=== PATIENT | male | born 1985 | race Caucasian/White ===

== ENCOUNTER 2017-01-26 18:13 | Inpatient (IN) | payer MEDICAID ==
[~2017-01-26] VITALS: Ht 182.9 cm; Wt 110.0 kg
[2017-01-26] MEDS ORDERED: NITROGLYCERIN 2% 1 GM OINT PKT TD STA (21:27)
[2017-01-26] MEDS ORDERED: ASPIRIN 81 MG TAB PO STA (21:27)
--- NOTE | 2017-01-26 21:34 | ERA ---
ER Documentation Chief Complaint Date/Time DATE: 01/26/17 TIME: 21:31 Chief Complaint HIGH BLOOD PRESSURE AND FEELING TIRED X 2 DAYS,DENIES PAIN HPI Patient is a 31-year-old male who presents to the ER with gradual onset, constant, progressive bilateral leg swelling and dyspnea for the last week. He went to a clinic and was found to have very elevated blood pressure and was sent to the ER. He denies chest pain. He reports having significant diaphoresis. He denies drug use. Reports history of diabetes, heart failure, hypertension, but states that he stopped taking his medications 2 months ago.He denies back pain. ROS All systems reviewed and are negative except as per history of present illness. Medications Home Meds No Active Prescriptions or Reported Meds Allergies Allergies: Coded Allergies: No Known Allergy (Unverified , 01/26/17) PMhx/Soc Past medical history: Diabetes mellitus, hypertension, CHF Past surgical history: Denies Social history: Denies tobacco, alcohol or illicit drugs FmHx Family History: diabetes, No coronary disease Physical Exam Vitals Vital Signs Date Time Temp Pulse Resp B/P Pulse Ox O2 Delivery O2 Flow Rate FiO2 01/26/17 23:36 106 22 154/84 97 Room Air 01/26/17 22:04 97.9 106 15 178/135 99 Nasal Cannula 2.0 01/26/17 21:39 Nasal Cannula 2 01/26/17 20:00 76 18 200/101 98 01/26/17 18:18 98.8 114 18 199/144 98 Physical Exam Const: Alert, mildly distressed, severely diaphoretic Head: Atraumatic Eyes: Normal Conjunctiva, No pallor, no icterus ENT: Normal External Ears, Nose and Mouth. Mucous membranes moist Neck: Full range of motion..~ No meningismus. Positive JVD. Resp: Clear to auscultation bilaterally, Trace bibasilar rales, No wheezes Cardio: Tachycardia, regular rhythm, no murmurs, Positive S4 gallop Abd: Soft, non tender, non distended. Skin: No petechiae or rashes Back: No midline or flank tenderness Ext: No cyanosis, 1+ edema bilateral legs to the knees Neur: Awake and alert, Cranial nerves II through XII intact bilaterally, strength and sensation full in 4 extremities. Psych: Normal Mood and Affect Result Diagram: 9213301/26/172133 Results 24 hrs Laboratory Tests Test 01/26/17 21:34 White Blood Count 12.110^3/ul Red Blood Count 4.9810^6/ul Hemoglobin 15.1g/dl Hematocrit 46.0% Mean Corpuscular Volume 92.4fl Mean Corpuscular Hemoglobin 30.3pg Mean Corpuscular Hemoglobin Concent 32.8g/dl Red Cell Distribution Width 13.6% Platelet Count 18522^3/UL Mean Platelet Volume 11.1fl Neutrophils % 55.1% Lymphocytes % 30.5% Monocytes % 8.5% Eosinophils % 4.6% Basophils % 0.7% Nucleated Red Blood Cells % 0.0/100WBC Neutrophils # (Manual) 6.610^3/ul Lymphocytes # 3.710^3/ul Monocytes # 1.010^3/ul Eosinophils # 0.610^3/ul Basophils # 0.110^3/ul Nucleated Red Blood Cells # 0.010^3/ul Urine Color YELLOW Urine Clarity CLEAR Urine pH 6.0 Urine Specific [place] 1.017 Urine Ketones NEGATIVEmg/dL Urine Nitrite NEGATIVEmg/dL Urine Bilirubin NEGATIVEmg/dL Urine Urobilinogen 1+mg/dL Urine Leukocyte Esterase NEGATIVELeu/ul Urine Microscopic RBC 1/HPF Urine Microscopic WBC 3/HPF Urine Bacteria FEW/HPF Urine Hemoglobin NEGATIVEmg/dL Urine Glucose NEGATIVEmg/dL Urine Total Protein 3+mg/dl Sodium Level 140mmol/L Potassium Level 4.0mmol/L Chloride Level 104mmol/L Carbon Dioxide Level 26mmol/L Anion Gap 14 Blood Urea Nitrogen 29mg/dl Creatinine 1.50mg/dl Glucose Level 136mg/dl Lactic Acid Level 1.9mmol/L Calcium Level 9.1mg/dl Total Bilirubin 0.4mg/dl Direct Bilirubin 0.00mg/dl Indirect Bilirubin 0.4mg/dl Aspartate Amino Transf (AST/SGOT) 39IU/L Alanine Aminotransferase (ALT/SGPT) 48IU/L Alkaline Phosphatase 88IU/L Troponin I 0.128ng/ml B-Type Natriuretic Peptide 8690PG/ML Total Protein 6.4g/dl Albumin 3.7g/dl Globulin 2.70g/dl Albumin/Globulin Ratio 1.37 Urine Opiates Screen Negative Urine Barbiturates Negative Urine Amphetamines Screen POSITIVE Urine Benzodiazepines Screen Negative Urine Cocaine Screen Negative Urine Cannabinoids Negative Current Medications Medications (Trade) Dose Ordered Sig/Belen Route PRN Reason Start Time Stop Time Status Last Admin Dose Admin Nitroglycerin (Nitroglycerin 2% Oint) 1 inch ONCE STAT TD 01/26/17 21:27 01/26/17 21:31 DC 01/26/17 21:58 Aspirin 162 mg 162 mg ONCE STAT PO 01/26/17 21:27 01/26/17 21:31 DC 01/26/17 21:57 Nicardipine HCl (Cardene Iv) 200 ml @ 50 mls/hr TITRATE IV 01/26/17 21:30 01/26/17 21:58 Furosemide (Lasix) 40 mg ONCE ONCE IV 01/26/17 23:30 01/26/17 23:31 DC 01/26/17 23:21 Procedures/MDM EKG read by me: Time 2136, rate 104 Rhythm: Sinus tachycardia [place]: Normal Intervals: Normal ST-T waves: T-wave inversion in lateral leads Ectopy: No Q-waves: No Impression: Sinus tachycardia with lateral T-wave inversion does not appear ischemic MDM: Patient is a 31-year-old male who presents to the ER with 1 week of progressive dyspnea and leg swelling. He has severely elevated blood pressure with diastolic of 140. He is diaphoretic. He complains of active shortness of breath. He has history of CHF, hypertension, and diabetes and is noncompliant with his medication. Due to concern for hypertensive emergency, the patient was started on a nicardipine drip. He was also given transdermal nitroglycerin and aspirin for cardiac protection. He was found to have a slightly elevated troponin, a significantly elevated BNP, and mild renal insufficiency with creatinine of 1.5. He was given a dose of Lasix. His tox screen was positive for amphetamines. I will check a creatinine kinase, and will admit him to the ICU for blood pressure control and management of CHF. I believe that his symptoms may be due to acute elevation in blood pressure and constant today hypertensive emergency. Critical Care Time: 32 minutes Treatments/Evaluations: Close monitoring and treatment of unstable vital signs, cardiorespiratory, and neurologic status, while maintaining tight balance of fluid, respiratory, and cardiac interventions. This time includes discussing the case with the patient and the patient's family. This time does not include all procedures stated elsewhere in this record. This time also includes reviewing old records, labs and radiological studies. This time includes examining and re-examining the patient. Additionally, this time also includes arranging care with admitting and consulting physicians. Departure Diagnosis: Primary Impression: Hypertensive crisis Additional Impressions: Congestive heart failure Qualified Code: I50.9 - Acute congestive heart failure, unspecified congestive heart failure type Renal insufficiency Condition: SANDRA Crystal MD Jan 26, 2017 21:34
[2017-01-26 21:48] LABS: BASOPHIL # 0.1 10^3/ul (0.0-0.1); BASOPHILS % 0.7 % (0.0-2.0); EOSINOPHILS # 0.6 10^3/ul (0.0-0.5); EOSINOPHILS % 4.6 % (0.0-7.0); HEMOGLOBIN 15.1 g/dl (14.0-18.0); LYMPHOCYTES # 3.7 10^3/ul (0.8-2.9); LYMPHOCYTES % 30.5 % (15.0-51.0); MEAN CORPUSCULAR HEMOGLOBIN 30.3 pg (29.0-33.0); MEAN CORPUSCULAR HGB CONC 32.8 g/dl (32.0-37.0); MEAN CORPUSCULAR VOLUME 92.4 fl (82.0-101.0); MEAN PLATELET VOLUME 11.1 fl (7.4-10.4); MONOCYTES % 8.5 % (0.0-11.0); NEUTROPHILS % 55.1 % (39.0-77.0); PLATELET COUNT 275 10^3/UL (140-415); RED BLOOD COUNT 4.98 10^6/ul (4.70-6.10); RED CELL DISTRIBUTION WIDTH 13.6 % (11.5-14.5); WHITE BLOOD COUNT 12.1 10^3/ul (4.8-10.8)
[2017-01-26 21:51] LABS: ADD UMIC YES; UR ASCORBIC ACID NEGATIVE (NEGATIVE); UR BACTERIA FEW /HPF (NONE SEEN); UR BILIRUBIN (Dip) NEGATIVE (NEGATIVE); UR BLOOD (Dip) NEGATIVE (NEGATIVE); UR CLARITY CLEAR (CLEAR); UR COLOR YELLOW (YELLOW); UR GLUCOSE (Dip) NEGATIVE (NEGATIVE); UR KETONES (Dip) NEGATIVE (NEGATIVE); UR LEUKOCYTE ESTERASE (Dip) NEGATIVE Leu/ul (NEGATIVE); UR NITRITE (Dip) NEGATIVE (NEGATIVE); UR RBC 1 /HPF (0-5); UR SPECIFIC GRAVITY (Dip) 1.017 (1.003-1.030); UR TOTAL PROTEIN (Dip) 3+ mg/dl (NEGATIVE); UR UROBILINOGEN (Dip) 1+ mg/dL (NEGATIVE)
[2017-01-26] MEDS: niCARdipine-NS 0.1MG/ML DRIP 200 ML IV SCH (21:58)
[2017-01-26 22:12] LABS: BARBITURATES Negative (NEGATIVE); BENZODIAZEPINES Negative (NEGATIVE); CANNABINOIDS Negative (NEGATIVE); COCAINE Negative (NEGATIVE); OPIATES Negative (NEGATIVE)
--- NOTE | 2017-01-26 22:23 | RADRPT ---
PROCEDURE: XR Chest AP portable CLINICAL INDICATION: Short of breath TECHNIQUE: An AP portable radiograph of the chest was submitted. COMPARISON: None. FINDINGS: Support Hardware: None Cardiovascular: The heart is mild to moderately enlarged but the pulmonary vasculature appears unrem arkable. Lung Olivera: The lung olivera appear clear with no nodule, alveolar infiltrate, or interstitial promi nence evident. Pleural Spaces: No pneumothorax or pleural effusion is identified. Osseous Structures: The osseous structures appear intact. Soft Tissues: The soft tissues appear generous. IMPRESSION: 1. Mild to moderate cardiomegaly without CHF. 2. Otherwise, unremarkable portable chest. Physician Aubrey Date Time Electronically viewed and signed by Physician Aubrey on 01/26/2017 22:23 /
[2017-01-26 22:35] LABS: ALBUMIN 3.7 g/dl (3.3-4.9); ALBUMIN/GLOBULIN RATIO 1.37; BILIRUBIN,INDIRECT 0.4 mg/dl (0-1.1); BILIRUBIN,TOTAL 0.4 mg/dl (0.2-1.3); CALCIUM 9.1 mg/dl (8.4-10.2); CREATININE 1.5 mg/dl (0.61-1.24); TOTAL PROTEIN 6.4 g/dl (6.1-8.1)
[2017-01-26 22:47] LABS: TROPONIN-I 0.128 ng/ml (0.00-0.12)
[2017-01-26] MEDS ORDERED: FUROSEMIDE 40 MG INJ IV ONE (23:30)
[2017-01-27] MEDS ORDERED: HEPARIN 1000 UNITS/ML 10 ML INJ IV ONE (01:30)
[2017-01-27] MEDS ORDERED: HEPARIN 25000 UNITS/250 ML 250 ML IV SCH (01:30)
[2017-01-27] MEDS ORDERED: ONDANSETRON 4 MG INJ IV PRN (01:30)
[2017-01-27] MEDS ORDERED: NITROGLYCERIN (SL) 0.4 MG TAB SL PRN (01:30)
[2017-01-27] MEDS ORDERED: ACETAMINOPHEN 650MG/20.3ML CUP PO PRN (01:30)
[2017-01-27] MEDS ORDERED: LORAZEPAM 2 MG INJ IV PRN (01:30)
[2017-01-27] MEDS: ACETAMINOPHEN 325 MG TAB PO PRN ×3 (03:15→23:55)
[2017-01-27 06:00] VITALS: TEMP 98.7
[2017-01-27 06:08] LABS: BASOPHIL # 0.1 10^3/ul (0.0-0.1); BASOPHILS % 0.7 % (0.0-2.0); EOSINOPHILS # 0.5 10^3/ul (0.0-0.5); HEMATOCRIT 48.2 % (42.0-52.0); LYMPHOCYTES % 12.8 % (15.0-51.0); MEAN CORPUSCULAR HEMOGLOBIN 29.5 pg (29.0-33.0); MEAN CORPUSCULAR HGB CONC 33.2 g/dl (32.0-37.0); MEAN CORPUSCULAR VOLUME 88.8 fl (82.0-101.0); MEAN PLATELET VOLUME 11.4 fl (7.4-10.4); MONOCYTES % 6.8 % (0.0-11.0); PLATELET COUNT 279 10^3/UL (140-415); RED BLOOD COUNT 5.43 10^6/ul (4.70-6.10); RED CELL DISTRIBUTION WIDTH 13.3 % (11.5-14.5); WHITE BLOOD COUNT 15.3 10^3/ul (4.8-10.8)
--- NOTE | 2017-01-27 06:37 | HP ---
Date/Time of Note Date/Time of Note DATE: 01/27/17 TIME: 06:22 Assessment/Plan VTE Prophylaxis VTE Prophylaxis Intervention: SCD's Assessment/Plan Chief Complaint/Hosp Course This is a 31-year-old male being admitted to the ICU floor for: #1 Elevated troponin: Suspect NSTEMI patient initial troponin was elevated at 0.182. Currently patient denies any chest pain. Based on his drug use and risk factors at the current time will start the patient on a heparin drip. Trend troponins 3. Will check a echocardiogram. #2 acute CHF exacerbation: BNP 8000 likely multifactorial secondary to methamphetamine use and/or uncontrolled hypertension. Patient has been diuresing while in the ED. Will continue IV Lasix daily. Will start patient on JERRY inhibitor. Will start beta-malika once patient is compensated. Will check lipid panel. Will check a hemoglobin A1c. Ativan as needed for amphetamine withdrawal. Check 2D echocardiogram. Consult cardiology. #3 hypertensive emergency: Patient's blood pressure was in the 200 systolic during admission. He was put on a Cardene drip. Will titrate drip to achieve an acceptable blood pressure. Likely will need to start on medications upon discharge as patient previously was on medications that he reports. #4: Acute kidney injury: No previous creatinine is available. Creatinine of 1.5 continue to monitor. Will attempt to avoid nephrotoxic agents as much as possible the patient right now will need some Lasix for #2. #4 Diabetes: We will check a hemoglobin A1c, initiate medications as indicated. Put patient on insulin sliding scale for the current time. #5 alcohol use: We will check an ethanol level. As needed Ativan. Initiate banana bag when patient is more stable fluid white. #6 DVT and GI prophylaxis: SCDs, acid malika Further treatment strategy will be implemented as per the clinical course Problems: HPI/ROS Admit Date/Time Admit Date/Time Hx of Present Illness Chief complaint: Feeling tired, bilateral leg swelling The patient is a 31-year-old male who presents to the ER with gradual onset, constant, progressive bilateral leg swelling and dyspnea for the last week. He went to a clinic and was found to have very elevated blood pressure and was sent to the ER. He denies chest pain. He reports having significant diaphoresis. He denies drug use. Reports history of diabetes, heart failure, hypertension, but states that he stopped taking his medications 2 months ago.He denies back pain. Patient denies any recent drug use despite positive meth on urine drug screen. Patient does state that he drinks but denies drinking every day. Allergies: NKDA Medications: Currently none ROS Const: As per HPI Eyes : No pain discharge or redness or change in visual acuity ENT: No pain, sore throat, congestion, congestion, dysphagia or discharge Respiratory: As per HPI Cardiovascular: As per HPI GI : no change in appetite, abdominal pain, nausea, vomiting, diarrhea, constipation, or change in the color his stool Genitourinary: No dysuria, hematuria, flank pain , discharge or CVA tenderness Musculoskeletal: As per HPI Skin: No rash, bruising or hives Neuro: No headache, dizziness, syncope, seizure, focal weakness Endocrine: No polyuria, polydipsia, temperature intolerance Psych: No hallucination, depression, anxiety or suicidal ideation PMH/Family/Social Past Medical History diabetes, heart failure, hypertension, Past Surgical History Past Surgical Hx: no surgical history Family History Significant Family History: no pertinent family hx Social History Patient reports using crystal meth in the past but denies any recent use Alcohol Use: rarely Smoking Status: Current every day smoker (1 pack per day 15 years) Drug Use: other Exam/Review of Systems Vital Signs Vitals Vital Signs Date Time Temp Pulse Resp B/P Pulse Ox O2 Delivery O2 Flow Rate FiO2 01/27/17 06:15 103 21 146/98 100 Nasal Cannula 2.0 01/27/17 06:00 98.7 Intake and Output 01/26/17 01/26/17 01/27/17 15:00 23:00 07:00 Output Total 7400 ml Balance -7400 ml Exam Exam General: Patient is well-developed well-nourished The patient is alert oriented -3 lying comfortably in bed. HEENT: Atraumatic, normocephalic. The pupils are equal, round and reactive. Extraocular motor are intact Neck: Supple with full range of motion. No rigidity or meningismus Chest: Nontender Lungs: Bilateral crackles at the bases Heart: Normal sinus rhythm, normal S1-S2, no overt murmurs appreciated Abdomen: Soft , nontender, nondistended , bowel sounds are present. No guarding no rebound tenderness , No masses or organomegaly. No costovertebral temporal angle mass Extremities: Normal to inspection, no edema no cyanosis Neurologic: Normal mental status, speech normal, cranial nerves II through XII are intact, motor and sensory are intact, no focal weakness, no signs of DTs Additional Comments PROCEDURE: XR Chest AP portable CLINICAL INDICATION: Short of breath TECHNIQUE: An AP portable radiograph of the chest was submitted. COMPARISON: None. FINDINGS: Support Hardware: None Cardiovascular: The heart is mild to moderately enlarged but the pulmonary vasculature appears unremarkable. Lung Nam: The lung nam appear clear with no nodule, alveolar infiltrate, or interstitial prominence evident. Pleural Spaces: No pneumothorax or pleural effusion is identified. Osseous Structures: The osseous structures appear intact. Soft Tissues: The soft tissues appear generous. IMPRESSION: 1. Mild to moderate cardiomegaly without CHF. 2. Otherwise, unremarkable portable chest. Physician Aubrey Date Time Electronically viewed and signed by Kayley Jefferson Physician on 01/26/2017 22:23 RH/ CC: SANDRA BYRD MD Labs Result Diagram: 01/26/17213301/26/172133 Medications Medications Current Medications Nicardipine HCl (Cardene Iv) 200 ml @ 50 mls/hr TITRATE IV Last administered on 01/26/17t 21:58; Admin Dose 50 MLS/HR; Start 01/26/17 at 21:30 Ondansetron HCl (Zofran Inj) 4 mg Q6H PRN IV NAUSEA AND/OR VOMITING; Start 01/27 at 01:30 Nitroglycerin (Nitroglycerin (Sl Tab) 0.4 Mg) 1 tab Q5M PRN SL CHEST PAIN; Start 01/27/17 at 01:30 Acetaminophen (Tylenol Liquid) 650 mg Q6H PRN PO PAIN LEVEL 1-3 OR FEVER; Start 01/27/17 at 01:30 Pantoprazole (Protonix Iv) 40 mg DAILY@06 IV ; Start 01/27/17 at 06:00 Lorazepam (Ativan) 1 mg Q4 PRN IV AGITATION; Start 01/27/17 at 01:30 Acetaminophen (Tylenol Tab) 650 mg Q6H PRN PO PAIN Last administered on t 03:15; Admin Dose 650 MG; Start 01/27/17 at 03:30 EUSEBIO BOYLE Jan 27, 2017 06:37
[2017-01-27 06:49] LABS: INR 0.99; PROTIME 13.1 Sec (12.2-14.2)
[2017-01-27 06:50] LABS: PARTIAL THROMBOPLASTIN TIME 47.8 Sec (25.0-35.0)
[2017-01-27] MEDS ORDERED: HEPARIN 1000 UNITS/ML 10 ML INJ IV PRN (07:30)
[2017-01-27] MEDS: PANTOPRAZOLE 40 MG INJ IV SCH (07:49)
[2017-01-27] MEDS: niCARdipine-NS 0.1MG/ML DRIP 200 ML IV SCH ×2 (07:53→09:57)
[2017-01-27 09:19] LABS: BASOPHIL # 0.1 10^3/ul (0.0-0.1); BASOPHILS % 0.7 % (0.0-2.0); EOSINOPHILS # 0.3 10^3/ul (0.0-0.5); EOSINOPHILS % 2.2 % (0.0-7.0); HEMOGLOBIN 15.5 g/dl (14.0-18.0); LYMPHOCYTES % 15.4 % (15.0-51.0); MEAN CORPUSCULAR HEMOGLOBIN 30.6 pg (29.0-33.0); MEAN CORPUSCULAR HGB CONC 34.4 g/dl (32.0-37.0); MEAN CORPUSCULAR VOLUME 88.8 fl (82.0-101.0); MONOCYTE # 0.9 10^3/ul (0.3-0.9); NEUTROPHILS % 74.2 % (39.0-77.0); PLATELET COUNT 280 10^3/UL (140-415); RED BLOOD COUNT 5.07 10^6/ul (4.70-6.10); WHITE BLOOD COUNT 12.8 10^3/ul (4.8-10.8)
[2017-01-27 09:37] LABS: CALCIUM 9.1 mg/dl (8.4-10.2); CREATININE 1.06 mg/dl (0.61-1.24); POTASSIUM 3.4 mmol/L (3.5-5.1)
--- NOTE | 2017-01-27 11:31 | RADRPT ---
Echocardiogram Report Patient Name: LUZ OVALLE Gender: Male Date: 1985 Study Date: 27-Jan-2017 Warp Spinner: ANTONELLA Patterson.[facility] Location: 6 Ref. Physician: EUSEBIO BOYLE Quality: Good Procedures: Transthoracic echocardiogram with complete 2D, M-Mode, and doppler examination. Indications: Congestive Heart Failure. 2D/M Mode Doppler Measurement Value Normal Ranges Measurement Value Normal Ranges LVIDd 2D 5.5 3.5 - 5.6 cm RAZA Vmax 3.0 cm2 LVIDs 2D 3.6 2.1 - 4.1 cm RAZA VTI 3.0 cm2 LVPWd 2D 1.2 0.6 - 1.1 cm AV Peak Vargas 1.4 m/sec IVSd 2D 1.2 0.6 - 1.1 cm AV Peak PG 8.2 mmHg AoR Diam 2D 2.3 2.0 - 3.7 cm LVOT Peak Vargas 1.2 m/sec EDV 2D 145.7 cm3 LVOT Peak PG 5.8 mmHg ESV 2D 47.1 cm3 MV E Peak Vargas 1.1 m/sec LA Dimen 2D 4.2 2.3 - 4.0 cm MV A Peak Vargas 0.5 m/sec LVOT Diam 2.1 cm MV E/A 2.3 MV Decel Time 188 msec MV Decel [place] 6 MV E/A 2.3 TR Peak Vargas 2.2 m/sec TR Peak PG 35.9 mmHg RVSP 40.0 mmHg Findings Left Ventricle: Normal left ventricular cavity size. Mild concentric left ventricular hypertrophy. Mild to moderate left ventricular systolic dysfunction. Ejection fraction is visually estimated at 4045 %. Tissue Doppler/Mitral Doppler indices are consistent with impaired relaxation (Stage I diastolic dysfunction). Right Ventricle: Normal right ventricular size. Normal right ventricular systolic function. Left Atrium: Upper limit of normal left atrial size. Right Atrium: The right atrium is normal in size. Mitral Valve: Mitral valve leaflets appear mildly thickened. Mild mitral annular calcification. Mild mitral valve regurgitation. Aortic Valve: Normal appearance of the aortic valve. No significant aortic stenosis or insufficiency. Tricuspid Valve: Tricuspid valve not well visualized. Estimated peak PA systolic pressure 40 mmHg. There is mild tricuspid regurgitation. Pulmonic Valve: Pulmonic valve not well visualized. Pericardium: Normal pericardium with no significant pericardial effusion. Aorta: Normal aortic root. IVC: Normal size and normal respiratory collapse consistent with normal right atrial pressure. Conclusions Normal left ventricular cavity size. Mild concentric left ventricular hypertrophy. Mild to moderate left ventricular systolic dysfunction. Ejection fraction is visually estimated at 40-45 %. Tissue Doppler/Mitral Doppler indices are consistent with impaired relaxation (Stage I diastolic dysfunction). Normal right ventricular size. Normal right ventricular systolic function. Upper limit of normal left atrial size. The right atrium is normal in size. Mild mitral valve regurgitation. Estimated peak PA systolic pressure 40 mmHg. There is mild tricuspid regurgitation. No significant aortic stenosis or insufficiency. Normal pericardium with no significant pericardial effusion. Electronically Signed By: uJlius Umaña 27-Jan-2017 11:30:36 -0700 Patient Name: LUZ OVALLE Study Date: 27-Jan-2017 [id number]
[2017-01-27] MEDS ORDERED: POTASSIUM CHLORIDE (SR) 20 MEQ TAB PO STA (11:44)
--- NOTE | 2017-01-27 11:46 | CONS ---
Date/Time of Note Date/Time of Note DATE: 01/27/17 TIME: 11:38 Assessment/Plan Assessment/Plan Additional Assessment/Plan Hypertension emergency (elevated troponin) Acute decompensated systolic congestive heart failure Cardiomyopathy with ejection fraction 40-45% Mildly elevated troponin Methamphetamine use -Patient does admit to methamphetamine use and noncompliance with medications. Currently on Cardene drip, will start patient on Coreg and JERRY inhibitor with plan of titrating off IV Cardene. Check serial cardiac enzymes. Initial troponin mildly elevated. Continue aspirin and statin therapy. Continue diuretics as renal function and blood pressure permits. Consultation Date/Type/Reason Admit Date/Time Type of Consultation: cv Reason for Consultation Elevated troponin Hx of Present Illness This is a 31-year-old male with past medical history of hypertension, cardiomyopathy, methamphetamine use who presents with symptoms of increased shortness of breath, lower extremity edema and hypertension. Patient's symptoms have worsened over the past week and had his blood pressure checked yesterday and was severely elevated and told to come to the emergency room. He does complain of headache which is improved since his admission. Shortness of breath is worse with exertion. He denies exertional chest pain, palpitations or dizziness. He does admit to methamphetamine use over the past 4 years and tobacco use as well. He has been noncompliant with his antihypertensive medications over the past few months. He is currently feeling much better now. 12 point review of systems was performed with all pertinent positives and negatives mentioned above and all else is negative Past Medical History Medical History: congestive heart failure, hypertension Past Surgical History Past Surgical Hx: no surgical history Family History Significant Family History: no pertinent family hx Social History Alcohol Use: rarely Smoking Status: Current every day smoker (1 pack per day 15 years) Drug Use: other (Methamphetamine use) Exam/Review of Systems Vital Signs Vitals Vital Signs Date Time Temp Pulse Resp B/P Pulse Ox O2 Delivery O2 Flow Rate FiO2 01/27/17 09:30 108 20 152/103 100 Room Air 01/27/17 06:15 2.0 01/27/17 06:00 98.7 Intake and Output 01/26/17 01/26/17 01/27/17 15:00 23:00 07:00 Output Total 7400 ml Balance -7400 ml Exam No apparent distress Constitutional: alert, oriented, well developed Head: normocephalic Neck: supple Respiratory: other (Coarse breath sounds bilaterally, no wheezing) Cardiovascular: other (S1-S2 heard), regular rate and rhythm, systolic murmur Gastrointestinal: bowel sounds, non-tender, soft Extremities: edema Results Result Diagram: 01/27/17 0850 01/27/17 0850 Results 24 hrs Laboratory Tests Test 01/26/17 21:34 01/27/17 03:47 01/27/17 05:34 01/27/17 08:50 White Blood Count 12.1 H 15.3 #H 12.8 H Red Blood Count 4.98 5.43 5.07 Hemoglobin 15.1 16.0 15.5 Hematocrit 46.0 48.2 45.0 Mean Corpuscular Volume 92.4 88.8 88.8 Mean Corpuscular Hemoglobin 30.3 29.5 30.6 Mean Corpuscular Hemoglobin Concent 32.8 33.2 34.4 Red Cell Distribution Width 13.6 13.3 13.0 Platelet Count 275 279 280 Mean Platelet Volume 11.1 H 11.4 H 11.0 H Neutrophils % 55.1 76.0 74.2 Lymphocytes % 30.5 12.8 L 15.4 Monocytes % 8.5 6.8 7.0 Eosinophils % 4.6 3.0 2.2 Basophils % 0.7 0.7 0.7 Nucleated Red Blood Cells % 0.0 0.0 0.0 Neutrophils # (Manual) 6.6 11.7 H 9.5 H Lymphocytes # 3.7 H 2.0 2.0 Monocytes # 1.0 H 1.0 H 0.9 Eosinophils # 0.6 H 0.5 0.3 Basophils # 0.1 0.1 0.1 Nucleated Red Blood Cells # 0.0 0.0 0.0 Urine Color YELLOW Urine Clarity CLEAR Urine pH 6.0 Urine Specific [place] 1.017 Urine Ketones NEGATIVE Urine Nitrite NEGATIVE Urine Bilirubin NEGATIVE Urine Urobilinogen 1+ H Urine Leukocyte Esterase NEGATIVE Urine Microscopic RBC 1 Urine Microscopic WBC 3 Urine Bacteria FEW A Urine Hemoglobin NEGATIVE Urine Glucose NEGATIVE Urine Total Protein 3+ H Sodium Level 140 144 Potassium Level 4.0 3.4 L Chloride Level 104 109 Carbon Dioxide Level 26 28 Anion Gap 14 10 Blood Urea Nitrogen 29 H 22 H Creatinine 1.50 H 1.06 Glucose Level 136 134 Lactic Acid Level 1.9 Calcium Level 9.1 9.1 Total Bilirubin 0.4 Direct Bilirubin 0.00 Indirect Bilirubin 0.4 Aspartate Amino Transf (AST/SGOT) 39 Alanine Aminotransferase (ALT/SGPT) 48 Alkaline Phosphatase 88 Creatine Kinase 90 Troponin I 0.128 *H B-Type Natriuretic Peptide 8690 H Total Protein 6.4 Albumin 3.7 Globulin 2.70 Albumin/Globulin Ratio 1.37 Urine Opiates Screen Negative Urine Barbiturates Negative Urine Amphetamines Screen POSITIVE Urine Benzodiazepines Screen Negative Urine Cocaine Screen Negative Urine Cannabinoids Negative Bedside Glucose 118 Prothrombin Time 13.1 Prothrombin Time Ratio 1.0 INR International Normalized Ratio 0.99 Activated Partial Thromboplast Time 47.8 H Ethyl Alcohol Level < 10.0 Medications Medications Current Medications Nicardipine HCl (Cardene Iv) 200 ml @ 50 mls/hr TITRATE IV Last administered on 01/27/17 09:57; Admin Dose 50 MLS/HR; Start 01/26/17 at 21:30 Ondansetron HCl (Zofran Inj) 4 mg Q6H PRN IV NAUSEA AND/OR VOMITING; Start 01/27 at 01:30 Nitroglycerin (Nitroglycerin (Sl Tab) 0.4 Mg) 1 tab Q5M PRN SL CHEST PAIN; Start 01/27/17 at 01:30 Acetaminophen (Tylenol Liquid) 650 mg Q6H PRN PO PAIN LEVEL 1-3 OR FEVER; Start 01/27/17 at 01:30 Pantoprazole (Protonix Iv) 40 mg DAILY@06 IV Last administered on 01/27/17 07: 49; Admin Dose 40 MG; Start 01/27/17 at 06:00 Lorazepam (Ativan) 1 mg Q4 PRN IV AGITATION; Start 01/27/17 at 01:30 Acetaminophen (Tylenol Tab) 650 mg Q6H PRN PO PAIN Last administered on 03:15; Admin Dose 650 MG; Start 01/27/17 at 03:30 Carvedilol (Coreg) 6.25 mg BID PO ; Start 01/27/17 at 21:00; Status UNV Carvedilol (Coreg) 6.25 mg 1131 ONCE PO ; Start 01/27/17 at 11:31; Stop 01/27/17 at 11:32; Status UNV Furosemide (Lasix) 40 mg DAILY IV ; Start 01/27/17 at 12:00; Status UNV Lisinopril (Zestril) 5 mg DAILY PO ; Start 01/28/17 at 09:00; Status UNV Procedures Procedures ECG with sinus rhythm, nonspecific ST abnormalities Julius Umaña DO Jan 27, 2017 11:46
[2017-01-27] MEDS: FUROSEMIDE 40 MG INJ IV SCH (12:17)
[2017-01-27] MEDS: LISINOPRIL 5 MG TAB PO SCH (12:19)
[2017-01-27 14:08] LABS: CK-MB 4.09 ng/ml (0.0-2.4)
[2017-01-27 14:14] LABS: TROPONIN-I 0.413 ng/ml (0.00-0.12)
[2017-01-27 16:33] VITALS: BP 145/93; PULSE 88; RESP 20
[2017-01-27 16:58] VITALS: Ht 182.9 cm; Wt 110.0 kg
[2017-01-27 19:38] VITALS: BP 149/90; RESP 20
[2017-01-27 20:03] VITALS: PULSE 90
[2017-01-27 20:23] LABS: CK-MB 3.61 ng/ml (0.0-2.4); TROPONIN-I 0.396 ng/ml (0.00-0.12)
[2017-01-27] MEDS: ATORVASTATIN 40 MG TAB PO SCH (21:43)
[2017-01-28] VITALS (13 sets, daily range): BP systolic 139–164; BP diastolic 74–120; PULSE 2–100; RESP 19–20
[2017-01-28 00:24] LABS: CK-MB 2.93 ng/ml (0.0-2.4); TROPONIN-I 0.381 ng/ml (0.00-0.12)
[2017-01-28] MEDS: PANTOPRAZOLE 40 MG INJ IV SCH (06:32)
[2017-01-28] MEDS ORDERED: ASPIRIN 81 MG TAB ONE (07:56)
[2017-01-28] MEDS: LISINOPRIL 5 MG TAB PO SCH ×2 (08:10→20:27)
[2017-01-28] MEDS: FUROSEMIDE 40 MG INJ IV SCH (08:10)
[2017-01-28] MEDS: ASPIRIN 81 MG TAB PO SCH (08:10)
--- NOTE | 2017-01-28 10:00 | PN ---
Date/Time of Note Date/Time of Note DATE: 01/28/17 TIME: 09:58 Assessment/Plan VTE Prophylaxis VTE Prophylaxis Intervention: SCD's Lines/Catheters IV C[facility]from [facility] Saline Lock Urinary Cath still in place: No Assessment/Plan Assessment/Plan Hypertension emergency (elevated troponin) Acute decompensated systolic congestive heart failure Cardiomyopathy with ejection fraction 40-45% Mildly elevated troponin Methamphetamine use -Patient does admit to methamphetamine use and noncompliance with medications.Continue cv meds and will increase bp meds Continue aspirin and statin therapy. Continue diuretics as renal function and blood pressure permits. Fasle +trops due to cardiomyopathy -good diuresis and change to po meds in 1-2 days -no cath at this time necessary Subjective 24 Hr Interval Summary Free Text/Dictation The patient with no cahnge Exam/Review of Systems Vital Signs Vitals Vital Signs Date Time Temp Pulse Resp B/P Pulse Ox O2 Delivery O2 Flow Rate FiO2 01/28/17 08:40 Nasal Cannula 2.0 01/28/17 08:00 96 01/28/17 07:13 98.1 20 164/109 98 Intake and Output 01/27/17 01/27/17 01/28/17 15:00 23:00 07:00 Intake Total 154 ml 600 ml 600 ml Output Total 2050 ml 700 ml Balance -1896 ml 600 ml -100 ml Results Result Diagram: 01/27/17 0850 01/27/17 0850 Results 24 hrs Laboratory Tests Test 01/27/17 13:00 01/27/17 19:22 01/27/17 23:40 Creatine Kinase 47 41 34 Creatine Kinase Index 8.7 8.8 8.6 Creatinine Kinase MB (Mass) 4.09 H 3.61 H 2.93 H Troponin I 0.413 *H 0.396 *H 0.381 *H Medications Medications Current Medications Nicardipine HCl (Cardene Iv) 200 ml @ 50 mls/hr TITRATE IV Last administered on 01/27/17t 09:57; Admin Dose 50 MLS/HR; Start 01/26/17 at 21:30 Ondansetron HCl (Zofran Inj) 4 mg Q6H PRN IV NAUSEA AND/OR VOMITING; Start 01/27 at 01:30 Nitroglycerin (Nitroglycerin (Sl Tab) 0.4 Mg) 1 tab Q5M PRN SL CHEST PAIN; Start 01/27/17 at 01:30 Acetaminophen (Tylenol Liquid) 650 mg Q6H PRN PO PAIN LEVEL 1-3 OR FEVER; Start 01/27/17 at 01:30 Pantoprazole (Protonix Iv) 40 mg DAILY@06 IV Last administered on 01/28/17 06: 32; Admin Dose 40 MG; Start 01/27/17 at 06:00 Lorazepam (Ativan) 1 mg Q4 PRN IV AGITATION; Start 01/27/17 at 01:30 Acetaminophen (Tylenol Tab) 650 mg Q6H PRN PO PAIN Last administered on 23:55; Admin Dose 650 MG; Start 01/27/17 at 03:30 Carvedilol (Coreg) 6.25 mg BID PO Last administered on 01/28/17 08:10; Admin Dose 6.25 MG; Start 01/27/17 at 21:00 Furosemide (Lasix) 40 mg DAILY IV Last administered on 01/28/17 08:10; Admin Dose 40 MG; Start 01/27/17 at 12:00 Lisinopril (Zestril) 5 mg DAILY PO Last administered on 01/28/17 08:10; Admin Dose 5 MG; Start 01/27/17 at 12:00 Aspirin (Aspirin) 81 mg DAILY PO Last administered on 01/28/17 08:10; Admin Dose 81 MG; Start 01/28/17 at 09:00 Atorvastatin Calcium (Lipitor) 40 mg HS PO Last administered on 01/27/17 21:43 ; Admin Dose 40 MG; Start 01/27/17 at 21:00 DELMY JOSE MD Jan 28, 2017 10:00
[2017-01-28 11:48] LABS: BASOPHIL # 0.1 10^3/ul (0.0-0.1); BASOPHILS % 0.7 % (0.0-2.0); EOSINOPHILS # 0.5 10^3/ul (0.0-0.5); EOSINOPHILS % 4.6 % (0.0-7.0); HEMATOCRIT 46.7 % (42.0-52.0); HEMOGLOBIN 15.9 g/dl (14.0-18.0); LYMPHOCYTES % 20.7 % (15.0-51.0); MEAN CORPUSCULAR HEMOGLOBIN 30.6 pg (29.0-33.0); MEAN CORPUSCULAR VOLUME 89.8 fl (82.0-101.0); MONOCYTES % 9.8 % (0.0-11.0); NEUTROPHILS % 63.8 % (39.0-77.0); PLATELET COUNT 279 10^3/UL (140-415); WHITE BLOOD COUNT 9.9 10^3/ul (4.8-10.8)
[2017-01-28 12:06] LABS: ALBUMIN 3.3 g/dl (3.3-4.9); ALBUMIN/GLOBULIN RATIO 1.26; BILIRUBIN,INDIRECT 0.7 mg/dl (0-1.1); BILIRUBIN,TOTAL 0.7 mg/dl (0.2-1.3); CALCIUM 9.3 mg/dl (8.4-10.2); CREATININE 1.04 mg/dl (0.61-1.24); POTASSIUM 3.8 mmol/L (3.5-5.1); TOTAL PROTEIN 5.9 g/dl (6.1-8.1)
[2017-01-28 12:28] LABS: THYROID STIMULATING HORMONE 1.98 MIU/L (0.465-4.680)
[2017-01-28] MEDS: ACETAMINOPHEN 325 MG TAB PO PRN (16:49)
--- NOTE | 2017-01-28 17:02 | PN ---
Date/Time of Note Date/Time of Note DATE: 01/28/17 TIME: 17:00 Assessment/Plan VTE Prophylaxis VTE Prophylaxis Intervention: LMWH Lines/Catheters IV C[facility] Type [facility]from [facility] Saline Lock Urinary Cath still in place: No Assessment/Plan Chief Complaint/Hosp Course 31 yo male with acute systolci CHF exacerbation in setting of methamphetamine use Acute systolic CHF exacerbation: - Approaching euvolemic, will switch to PO lasix 20 BID for now given massive diuresis to 40 IV - Uptitrate neurohormonal blockade: JERRY, BB, bety all indicated Hypertension: - Continue titration of JERRY/BB Methamphetamine use d/o: - Extnesively cousneld no absitnance Dispo in coming 1-2 days if BP is controlled Problems: Subjective 24 Hr Interval Summary Free Text/Dictation Large diuresis, > 7 L out Feels well, breathing back to baseline Family at bedside, comfortably and happy Exam/Review of Systems Vital Signs Vitals Vital Signs Date Time Temp Pulse Resp B/P Pulse Ox O2 Delivery O2 Flow Rate FiO2 01/28/17 16:54 164/106 01/28/17 16:00 100 01/28/17 15:17 98.5 19 100 01/28/17 08:40 Nasal Cannula 2.0 Intake and Output 01/27/17 01/27/17 01/28/17 15:00 23:00 07:00 Intake Total 154 ml 600 ml 600 ml Output Total 2050 ml 700 ml Balance -1896 ml 600 ml -100 ml Exam Still hypertensive Less diaphoretic than yesterda Flat neck veins RRR, no murmurs NO peripheral edeam Clear lungs, nonlabored Results Result Diagram: 01/28/17 1122 01/28/17 1122 Results 24 hrs Laboratory Tests Test 01/27/17 19:22 01/27/17 23:40 01/28/17 11:22 Creatine Kinase 41 34 Creatine Kinase Index 8.8 8.6 Creatinine Kinase MB (Mass) 3.61 H 2.93 H Troponin I 0.396 *H 0.381 *H White Blood Count 9.9 # Red Blood Count 5.20 Hemoglobin 15.9 Hematocrit 46.7 Mean Corpuscular Volume 89.8 Mean Corpuscular Hemoglobin 30.6 Mean Corpuscular Hemoglobin Concent 34.0 Red Cell Distribution Width 13.0 Platelet Count 279 Mean Platelet Volume 11.0 H Neutrophils % 63.8 Lymphocytes % 20.7 Monocytes % 9.8 Eosinophils % 4.6 Basophils % 0.7 Nucleated Red Blood Cells % 0.0 Neutrophils # (Manual) 6.3 Lymphocytes # 2.0 Monocytes # 1.0 H Eosinophils # 0.5 Basophils # 0.1 Nucleated Red Blood Cells # 0.0 Sodium Level 137 Potassium Level 3.8 Chloride Level 103 Carbon Dioxide Level 30 Anion Gap 8 Blood Urea Nitrogen 17 Creatinine 1.04 Glucose Level 120 Calcium Level 9.3 Magnesium Level 1.8 Total Bilirubin 0.7 Direct Bilirubin 0.00 Indirect Bilirubin 0.7 Aspartate Amino Transf (AST/SGOT) 29 Alanine Aminotransferase (ALT/SGPT) 41 Alkaline Phosphatase 78 Total Protein 5.9 L Albumin 3.3 Globulin 2.60 Albumin/Globulin Ratio 1.26 Thyroid Stimulating Hormone (TSH) 1.980 Medications Medications Current Medications Nicardipine HCl (Cardene Iv) 200 ml @ 50 mls/hr TITRATE IV Last administered on 01/27/17 09:57; Admin Dose 50 MLS/HR; Start 01/26/17 at 21:30 Ondansetron HCl (Zofran Inj) 4 mg Q6H PRN IV NAUSEA AND/OR VOMITING; Start 01/27 at 01:30 Nitroglycerin (Nitroglycerin (Sl Tab) 0.4 Mg) 1 tab Q5M PRN SL CHEST PAIN; Start 01/27/17 at 01:30 Acetaminophen (Tylenol Liquid) 650 mg Q6H PRN PO PAIN LEVEL 1-3 OR FEVER; Start 01/27/17 at 01:30 Pantoprazole (Protonix Iv) 40 mg DAILY@06 IV Last administered on 01/28/17 06: 32; Admin Dose 40 MG; Start 01/27/17 at 06:00 Lorazepam (Ativan) 1 mg Q4 PRN IV AGITATION; Start 01/27/17 at 01:30 Acetaminophen (Tylenol Tab) 650 mg Q6H PRN PO PAIN Last administered on 16:49; Admin Dose 650 MG; Start 01/27/17 at 03:30 Aspirin (Aspirin) 81 mg DAILY PO Last administered on 01/28/17 08:10; Admin Dose 81 MG; Start 01/28/17 at 09:00 Atorvastatin Calcium (Lipitor) 40 mg HS PO Last administered on 01/27/17t 21:43 ; Admin Dose 40 MG; Start 01/27/17 at 21:00 Carvedilol (Coreg) 12.5 mg BID PO ; Start 01/28/17 at 21:00 Carvedilol (Coreg) 25 mg BID PO ; Start 01/28/17 at 21:00 Lisinopril (Zestril) 5 mg BID PO ; Start 01/28/17 at 21:00; Status SANDRA DE OLIVEIRA MD Jan 28, 2017 17:02
[2017-01-28] MEDS: FUROSEMIDE 20 MG TAB PO SCH (17:53)
[2017-01-28] MEDS: ATORVASTATIN 40 MG TAB PO SCH (20:27)
[2017-01-29] VITALS (12 sets, daily range): BP systolic 132–149; BP diastolic 60–98; PULSE 79–96; RESP 19–20
[2017-01-29] MEDS: PANTOPRAZOLE 40 MG INJ IV SCH (06:35)
[2017-01-29] MEDS: FUROSEMIDE 20 MG TAB PO SCH (06:36)
[2017-01-29] MEDS: ASPIRIN 81 MG TAB PO SCH (09:22)
[2017-01-29] MEDS: LISINOPRIL 5 MG TAB PO SCH ×2 (09:23→20:23)
[2017-01-29 11:32] LABS: BASOPHIL # 0.1 10^3/ul (0.0-0.1); BASOPHILS % 0.7 % (0.0-2.0); EOSINOPHILS # 0.5 10^3/ul (0.0-0.5); HEMATOCRIT 47.1 % (42.0-52.0); HEMOGLOBIN 15.3 g/dl (14.0-18.0); LYMPHOCYTES # 1.9 10^3/ul (0.8-2.9); LYMPHOCYTES % 17.1 % (15.0-51.0); MEAN CORPUSCULAR HEMOGLOBIN 29.4 pg (29.0-33.0); MEAN CORPUSCULAR HGB CONC 32.5 g/dl (32.0-37.0); MEAN CORPUSCULAR VOLUME 90.4 fl (82.0-101.0); MEAN PLATELET VOLUME 10.8 fl (7.4-10.4); MONOCYTES % 8.5 % (0.0-11.0); NEUTROPHILS % 69.3 % (39.0-77.0); PLATELET COUNT 258 10^3/UL (140-415); RED BLOOD COUNT 5.21 10^6/ul (4.70-6.10); RED CELL DISTRIBUTION WIDTH 13.2 % (11.5-14.5); WHITE BLOOD COUNT 11.3 10^3/ul (4.8-10.8)
[2017-01-29 12:19] LABS: ALBUMIN 3.5 g/dl (3.3-4.9); ALBUMIN/GLOBULIN RATIO 1.29; BILIRUBIN,INDIRECT 0.3 mg/dl (0-1.1); BILIRUBIN,TOTAL 0.3 mg/dl (0.2-1.3); CALCIUM 9.3 mg/dl (8.4-10.2); CREATININE 1.07 mg/dl (0.61-1.24); POTASSIUM 4.3 mmol/L (3.5-5.1); TOTAL PROTEIN 6.2 g/dl (6.1-8.1)
--- NOTE | 2017-01-29 12:45 | PN ---
DATE: 01/29/2017 SUBJECTIVE DATA: The patient reports he is feeling well and denies any shortness of breath or chest pain. PHYSICAL EXAMINATION: GENERAL: He is in no distress. VITAL SIGNS: Temperature 92, blood pressure 142/86, ox saturation 99 percent. Pulse 84, no jugular venous distention. LUNGS: Clear. HEART: Reveals a regular rate and rhythm. ABDOMEN: Soft, nontender, nondistended. EXTREMITIES: No edema. MEDICATIONS: Reviewed, on: 1. Carvedilol 25 mg p.o. b.i.d. 2. Isinopril 5 mg daily. 3. Furosemide 20 mg a day. 4. Aspirin 81 mg. 5. Lipitor. 6. Protonix. ASSESSMENT.: 1. Congestive heart failure. 2. Cardiomyopathy. 3. Mildly elevated troponin. 4. Methamphetamine use. PLAN: The patient's blood pressure remains borderline, but given that he has just been started on multiple medications, I will not titrate up further at this time. He appears euvolemic and his heart failure appears to be stable. Dictated By: Rob Cole MD /abner/dante /Document#: [id number]
--- NOTE | 2017-01-29 17:13 | PN ---
Date/Time of Note Date/Time of Note DATE: 01/29/17 TIME: 17:10 Assessment/Plan VTE Prophylaxis VTE Prophylaxis Intervention: heparin, LMWH Lines/Catheters IV Catheter Type (from [facility]): Saline Lock Urinary Cath still in place: No Assessment/Plan Chief Complaint/Hosp Course 31 yo male with acute systolci CHF exacerbation in setting of methamphetamine use Acute systolic CHF exacerbation in setting of hypertensive emergency and amphetamine use - Now euvolemic, i don't anticipate further need for diuretics if BP is controlled and abstains from amphetamines - Coreg 25 and lisinpirl 10 have been given. Caution wiht hypotension as amphetamines wear off. May need to downtitrate Coreg or swtich to Toprol Hypertension: - Controlled Methamphetamine use d/o: - Extnesively cousneld no absitnance Ready for discharge tomorrow. Monitor one more day on anithypertensives Needs to be set up with outpatient farm equipment engineer who accepts [facility] Problems: Subjective 24 Hr Interval Summary Free Text/Dictation Doing much better today BP controlled, numerous agents added Euvolemic Exam/Review of Systems Vital Signs Vitals Vital Signs Date Time Temp Pulse Resp B/P Pulse Ox O2 Delivery O2 Flow Rate FiO2 01/29/17 15:32 98.0 82 132/60 01/29/17 08:00 Nasal Cannula 2.0 01/29/17 04:05 20 99 Intake and Output 01/28/17 01/28/17 01/29/17 15:00 23:00 07:00 Intake Total 1100 ml 700 ml Output Total 1850 ml Balance -750 ml 700 ml Exam Flat neck veins Clear lungs No edema Constitutional: alert, oriented, well developed Psych: nl mood/affect, no complaints Head: atraumatic, normocephalic Eyes: EOMI, PERRL, nl conjunctiva, nl lids, nl sclera ENMT: nl external ears & nose, nl lips & teeth, nl nasal mucosa & septum Neck: non-tender, supple Respiratory: clear to auscultation, normal air movement Cardiovascular: nl pulses, regular rate and rhythm Gastrointestinal: nl liver, spleen, non-tender, soft Musculoskeletal: nl extremities to inspection, nl gait and stance Extremities: normal pulses Neurological: DINKEY ENGINE FIRER II-XII intact, nl mental status, nl speech, nl strength Skin: nl turgor, No rash or lesions Lymph: nl lymph nodes Results Result Diagram: 01/29/17 1110 01/29/17 1110 Results 24 hrs Laboratory Tests Test 01/29/17 11:10 White Blood Count 11.3 H Red Blood Count 5.21 Hemoglobin 15.3 Hematocrit 47.1 Mean Corpuscular Volume 90.4 Mean Corpuscular Hemoglobin 29.4 Mean Corpuscular Hemoglobin Concent 32.5 Red Cell Distribution Width 13.2 Platelet Count 258 Mean Platelet Volume 10.8 H Neutrophils % 69.3 Lymphocytes % 17.1 Monocytes % 8.5 Eosinophils % 4.0 Basophils % 0.7 Nucleated Red Blood Cells % 0.0 Neutrophils # (Manual) 7.8 H Lymphocytes # 1.9 Monocytes # 1.0 H Eosinophils # 0.5 Basophils # 0.1 Nucleated Red Blood Cells # 0.0 Sodium Level 139 Potassium Level 4.3 Chloride Level 105 Carbon Dioxide Level 27 Anion Gap 11 Blood Urea Nitrogen 19 Creatinine 1.07 Glucose Level 111 Calcium Level 9.3 Total Bilirubin 0.3 Direct Bilirubin 0.00 Indirect Bilirubin 0.3 Aspartate Amino Transf (AST/SGOT) 28 Alanine Aminotransferase (ALT/SGPT) 39 Alkaline Phosphatase 76 Total Protein 6.2 Albumin 3.5 Globulin 2.70 Albumin/Globulin Ratio 1.29 Medications Medications Current Medications Nicardipine HCl (Cardene Iv) 200 ml @ 50 mls/hr TITRATE IV Last administered on 01/27/17 09:57; Admin Dose 50 MLS/HR; Start 01/26/17 at 21:30 Ondansetron HCl (Zofran Inj) 4 mg Q6H PRN IV NAUSEA AND/OR VOMITING; Start 01/27 at 01:30 Nitroglycerin (Nitroglycerin (Sl Tab) 0.4 Mg) 1 tab Q5M PRN SL CHEST PAIN; Start 01/27/17 at 01:30 Acetaminophen (Tylenol Liquid) 650 mg Q6H PRN PO PAIN LEVEL 1-3 OR FEVER; Start 01/27/17 at 01:30 Pantoprazole (Protonix Iv) 40 mg DAILY@06 IV Last administered on 01/29/17 06: 35; Admin Dose 40 MG; Start 01/27/17 at 06:00 Lorazepam (Ativan) 1 mg Q4 PRN IV AGITATION; Start 01/27/17 at 01:30 Acetaminophen (Tylenol Tab) 650 mg Q6H PRN PO PAIN Last administered on 16:49; Admin Dose 650 MG; Start 01/27/17 at 03:30 Aspirin (Aspirin) 81 mg DAILY PO Last administered on 01/29/17 09:22; Admin Dose 81 MG; Start 01/28/17 at 09:00 Atorvastatin Calcium (Lipitor) 40 mg HS PO Last administered on 01/28/17 20:27 ; Admin Dose 40 MG; Start 01/27/17 at 21:00 Carvedilol (Coreg) 25 mg BID PO Last administered on 01/29/17 09:23; Admin Dose 25 MG; Start 01/28/17 at 21:00 Lisinopril (Zestril) 5 mg BID PO Last administered on 01/29/17 09:23; Admin Dose 5 MG; Start 01/28/17 at 21:00 SANDRA LABOY MD Jan 29, 2017 17:13
[2017-01-29] MEDS: ATORVASTATIN 40 MG TAB PO SCH (20:23)
[2017-01-30] VITALS (10 sets, daily range): BP systolic 129–150; BP diastolic 60–97; PULSE 86–88; RESP 16–20
[2017-01-30] MEDS: PANTOPRAZOLE 40 MG INJ IV SCH (05:57)
[2017-01-30] MEDS: LISINOPRIL 5 MG TAB PO SCH (09:00)
[2017-01-30] MEDS: ASPIRIN 81 MG TAB PO SCH (09:00)
[2017-01-30] MEDS ORDERED: FURO20TA3 PO (14:43)
[2017-01-30] MEDS ORDERED: CARV25TA79 PO (14:43)
[2017-01-30] MEDS ORDERED: LISI10TA2 PO (14:43)
--- NOTE | 2017-01-30 14:43 | PDOCDIS ---
Discharge Instructions CONDITION Patient Condition: Good HOME CARE INSTRUCTIONS: Diet Instructions: Reduced Sodium ACTIVITY: Activity Restrictions: No Restrictions FOLLOW UP/APPOINTMENTS Follow-up Plan FOLLOW UP WITH YOUR PRIMARY CARE PHYSICIAN IN 1-2 WEEKS ANDRES VELASQUEZ Jan 30, 2017 14:43
--- NOTE | 2017-01-30 14:50 | DS ---
Date/Time of Note Date/Time of Note DATE: 01/30/17 TIME: 14:44 Discharge Summary Admission/Discharge Info Admit Date/Time Jan 27, 2017 at 04:36 Discharge Date/Time January 30, 2017 Discharge Diagnosis Acute systolic CHF exacerbation in setting of hypertensive emergency and amphetamine use- Now euvolemic -EF is 40-45% -DC with Coreg 25 and lisinopril 10 as well as Lasix as needed Hypertension: - Controlled Methamphetamine abuse -Counseled on abstinence Patient Condition: Good Hospital Course Patient is a 31-year-old male who presents to the ER with gradual onset, constant, progressive bilateral leg swelling and dyspnea for the last week. He went to a clinic and was found to have very elevated blood pressure and was sent to the ER. Does report a history of heart failure but has not been taking his medications. Patient denies any drug use U tox did show amphetamines. Patient was found to have heart failure with an EF of 40 to 45%. Patient BP was elevated will start on Coreg and lisinopril. Patient was seen by cardiology and was diuresed with Lasix as he was noted to be in CHF exacerbation. Due to patient's age and amphetamine use pt has presumed nonischemic CHF. Patient BP was controlled and patient appears to be euvolemic on the day of discharge. On day of discharge patient vitals, labs and physical exam are stable, he had no further acute complaints and questions were answered. Home Meds Active Scripts Lisinopril* (Lisinopril*) 10 Mg Tablet, 10 MG PO DAILY, #60 TAB 1 Refill Prov:ANDRES VELASQUEZ 01/30/17 Furosemide* (Furosemide*) 20 Mg Tablet, 20 MG PO DAILY, #60 TAB Prov:ANDRES VELASQUEZ 01/30/17 Carvedilol* (Carvedilol*) 25 Mg Tablet, 25 MG PO BID, #60 TAB 1 Refill Prov:ANDRES VELASQUEZ 01/30/17 Follow-up Plan FOLLOW UP WITH YOUR PRIMARY CARE PHYSICIAN IN 1-2 WEEKS Primary Care Provider Care Physician No Primary Time spent on discharge: > 30 minutes ANDRES VELASQUEZ Jan 30, 2017 14:50
--- NOTE | 2017-01-30 14:55 | CONS ---
Date/Time of Note Date/Time of Note DATE: 01/30/17 TIME: 14:54 Assessment/Plan Assessment/Plan Additional Assessment/Plan Hypertension emergency (elevated troponin), resolved Acute decompensated systolic congestive heart failure, improved Cardiomyopathy with ejection fraction 40-45% Mildly elevated troponin Methamphetamine use -Blood pressure trend overall remains stable. Continue antihypertensives as blood pressure permits. Counseled on cessation of methamphetamine use. Patient has been seeing cardiology at [facility]. Would recommend follow-up. DC planning Consultation Date/Type/Reason Admit Date/Time Jan 27, 2017 at 04:36 Initial Consult Date Type of Consultation: cv 24 HR Interval Summary Free Text/Dictation Denies chest pain, shortness of breath, headache or palpitations Exam/Review of Systems Vital Signs Vitals Vital Signs Date Time Temp Pulse Resp B/P Pulse Ox O2 Delivery O2 Flow Rate FiO2 01/30/17 12:52 86 01/30/17 11:18 98.6 18 138/97 98 01/30/17 08:45 Nasal Cannula 2.0 Intake and Output 01/29/17 01/29/17 01/30/17 15:00 23:00 07:00 Intake Total 600 ml 700 ml Output Total 650 ml Balance -50 ml 700 ml Exam No apparent distress Constitutional: alert, oriented Head: normocephalic Respiratory: other (Coarse breath sounds bilaterally, no wheezing) Cardiovascular: other (S1-S2 heard), regular rate and rhythm Gastrointestinal: bowel sounds, non-tender, soft Extremities: edema (Trace) Results Result Diagram: 01/29/17 1110 01/29/17 1110 Medications Medications Current Medications Nicardipine HCl (Cardene Iv) 200 ml @ 50 mls/hr TITRATE IV Last administered on 01/27/17t 09:57; Admin Dose 50 MLS/HR; Start 01/26/17 at 21:30 Ondansetron HCl (Zofran Inj) 4 mg Q6H PRN IV NAUSEA AND/OR VOMITING; Start 01/27 at 01:30 Nitroglycerin (Nitroglycerin (Sl Tab) 0.4 Mg) 1 tab Q5M PRN SL CHEST PAIN; Start 01/27/17 at 01:30 Acetaminophen (Tylenol Liquid) 650 mg Q6H PRN PO PAIN LEVEL 1-3 OR FEVER; Start 01/27/17 at 01:30 Pantoprazole (Protonix Iv) 40 mg DAILY@06 IV Last administered on 01/30/17 05: 57; Admin Dose 40 MG; Start 01/27/17 at 06:00 Lorazepam (Ativan) 1 mg Q4 PRN IV AGITATION; Start 01/27/17 at 01:30 Acetaminophen (Tylenol Tab) 650 mg Q6H PRN PO PAIN Last administered on 16:49; Admin Dose 650 MG; Start 01/27/17 at 03:30 Aspirin (Aspirin) 81 mg DAILY PO Last administered on 01/30/17 09:00; Admin Dose 81 MG; Start 01/28/17 at 09:00 Atorvastatin Calcium (Lipitor) 40 mg HS PO Last administered on 01/29/17 20:23 ; Admin Dose 40 MG; Start 01/27/17 at 21:00 Carvedilol (Coreg) 25 mg BID PO Last administered on 01/30/17 09:00; Admin Dose 25 MG; Start 01/28/17 at 21:00 Lisinopril (Zestril) 5 mg BID PO Last administered on 01/30/17 09:00; Admin Dose 5 MG; Start 01/28/17 at 21:00 Julius Umaañ DO Jan 30, 2017 14:55
== END 2017-01-30 16:20 | disposition home or self-care (01) | DRG 292 ==
LOC: E/R 18:13 → TEL 01-27 04:36
PROVIDERS: ADMIT Family Medicine; ATTEND Family Medicine
DX: I11.0 Hypertensive heart disease with heart failure (principal); N17.9 Acute kidney failure, unspecified; I42.9 Cardiomyopathy, unspecified; I16.1 Hypertensive emergency; I50.23 Acute on chronic systolic (congestive) heart failure; F15.99 Other stimulant use, unspecified with unspecified stimulant-induced disorder; E11.9 Type 2 diabetes mellitus without complications; F17.210 Nicotine dependence, cigarettes, uncomplicated; Z72.89 Other problems related to lifestyle; Z91.14 Patient's other noncompliance with medication regimen
CPT/HCPCS: 36415; 71010; 80048; 80053; 80306; 80307; 81001; 82550; 82553; 82962; 83605; 83735; 83880; 84443; 84484; 85025; 85610; 85730; 93005; 93306; 96374; 96375; 96376; C9113; J1644; J1940